=== PATIENT | female | born 1965 | race Caucasian/White ===

== ENCOUNTER 2023-07-01 13:29 | Emergency (ER) | payer OTHER ==
[~2023-07-01] VITALS: Ht 149.9 cm; Wt 54.4 kg
[2023-07-01 13:31] VITALS: O2SAT 100
[2023-07-01] MEDS ORDERED: KETOROLAC 60MG/2ML VIAL IM ONE (14:00)
[2023-07-01] MEDS ORDERED: ACETAMINOPHEN 325MG TABLET PO ONE (14:00)
[2023-07-01 14:10] VITALS: BP 139/92; PULSE 87; RESP 16; TEMP 98.1
[2023-07-01 14:43] LABS: BASOPHILS % 0.3 % (0.0-2.0); HEMATOCRIT. 34.9 % (36.0-48.0); HEMOGLOBIN. 10.8 g/dL (12.0-16.0); MEAN CORPUSCULAR HEMOGLOBIN 25.1 pg (28.0-32.0); MEAN CORPUSCULAR VOLUME 81.1 fL (81.0-99.0); MEAN PLATELET VOLUME 9.7 fl (7.4-10.4); MONOCYTES % 4.3 % (2.0-8.0); NEUTROPHILS % 82.4 % (40.0-76.0); PLATELET 414 x1000/uL (130-400); RED BLOOD CELL COUNT 4.31 mill/uL (4.2-5.4); RED CELL DISTRIBUTION WIDTH 16.1 % (11.6-14.6); WHITE BLOOD COUNT 12.5 x1000/uL (4.5-11.0)
[2023-07-01 14:51] LABS: ALANINE AMINOTRANSFERASE 13 IU/L (10-49); ALBUMIN 4.7 g/dL (3.2-4.8); ASPARTATE AMINOTRANSFERASE 18 IU/L (<34); BILIRUBIN TOTAL 0.6 mg/dL (0.1-1.0); CALCIUM 9.7 mg/dL (8.7-10.4); CARBON DIOXIDE 26 mEq/L (21-32); CHLORIDE 107 mEq/L (98-107); CREATININE 0.5 mg/dL (0.6-1.0); GLUCOSE 107 mg/dL (70-105); POTASSIUM 3.4 mEq/L (3.5-5.1); SODIUM 141 mEq/L (136-145); TROPONIN I HIGH SENSITIVITY < 4 ng/L (3.0-34); UREA NITROGEN BLOOD 11 mg/dL (9-23)
[2023-07-01] MEDS ORDERED: NAPR220C61 MT (16:03)
== END 2023-07-01 16:19 | disposition home or self-care (01) ==
LOC: ER 13:29
DX: S70.12XA Contusion of left thigh, initial encounter (principal); G89.11 Acute pain due to trauma; S49.92XA Unspecified injury of left shoulder and upper arm, initial encounter; E03.9 Hypothyroidism, unspecified; W18.39XA Other fall on same level, initial encounter; Y93.89 Activity, other specified; Y92.89 Other specified places as the place of occurrence of the external cause; Y99.8 Other external cause status
CPT/HCPCS: 99285; 71045; 80053; 85025; 84484; 36415; 73502; 73030; 73060; 73080; 73090; 93005; 96372; J1885